=== PATIENT | male | born 1970 | race Caucasian/White ===

== ENCOUNTER → 2016-10-28 | Outpatient (CLI) | payer BC ==
[2016-10-28 07:41] LABS: BASOPHILS % (AUTO) 0 % (0-2); EOSINOPHILS # (AUTO) 0.1 10^3uL; EOSINOPHILS % (AUTO) 1 % (0-4); LYMPHOCYTES # (AUTO) 1.5 X10^3; MEAN CORPUSCULAR VOLUME 88 FL (80-100); MEAN PLATELET VOLUME 9.5 FL (6.0-9.5); MONOCYTES # (AUTO) 0.4 X10^3; MONOCYTES % (AUTO) 7 % (3-11); NEUTROPHILS # (AUTO) 3.3 X10^3; NEUTROPHILS % (AUTO) 62 % (51-67); PLATELET COUNT 215 10^3uL (150-450); WHITE BLOOD COUNT 5.31 10^3uL (4.0-11.0)
[2016-10-28 07:43] LABS: BILIRUBIN,URINE Negative (Negative); CLARITY,URINE Clear; COLOR,URINE Yellow; GLUCOSE, URINE (UA) Negative (Negative); LEUKOCYTE ESTERASE ,URINE Negative (Negative); UROBILINOGEN,URINE 0.2 mg/dL (0.2-1.0)
[2016-10-28 07:44] LABS: MEAN CORPUSCULAR HEMOGLOBIN 32.3 PG (26.0-34.0); MEAN CORPUSCULAR HGB CONC 36.8 g/dL (31.0-37.0)
[2016-10-28 07:55] LABS: RBC,URINE 0-2 /HPF; URINE CENTRIFUGED VOLUME 12 mL
[2016-10-28 08:11] LABS: ALBUMIN 4.6 g/dL (3.4-5.0); ANION GAP 14.2 MEQ/L (3-15); CALCULATED IONIZED CALCIUM 4.1 mg/dL (3.8-4.6); TOTAL PROTEIN 7.2 g/dL (6.4-8.5)
== END ==
LOC: LAB 07:26
PROVIDERS: ATTEND Family Medicine
DX: I10 Essential (primary) hypertension (principal); E78.2 Mixed hyperlipidemia; M10.9 Gout, unspecified
CPT/HCPCS: 36415; 80053; 80061; 81003; 81015; 84153; 84443; 84550; 85025

== ENCOUNTER → 2016-11-21 | Outpatient (REF) | payer BC ==
[~2016-11-21] MED LIST: ALLO100T PO; AMLO10TA82 PO; ATOR20TA PO; CEPH-331 PO; CYCL10TA45; FENO145T2 PO; LSNP20T PO; NAPR500T3 PO; OXYC1TAB87 PO
[2016-11-21 10:23] LABS: BILIRUBIN,URINE Negative (Negative); CLARITY,URINE Clear; COLOR,URINE Yellow; GLUCOSE, URINE (UA) Negative (Negative); LEUKOCYTE ESTERASE, URINE Negative (Negative); UROBILINOGEN,URINE 0.2 mg/dL (0.2-1.0)
[2016-11-21 10:43] LABS: URINE CENTRIFUGED VOLUME 12 mL
[2016-11-21 10:44] LABS: RBC,URINE 0-2 /HPF
== END ==
LOC: LAB 09:57
PROVIDERS: ATTEND Nurse Practitioner Family
DX: N45.1 Epididymitis (principal)
CPT/HCPCS: 81003; 81015

== ENCOUNTER → 2016-12-02 | Outpatient (CLI) | payer OTHER, BC ==
--- NOTE | 2016-12-02 12:11 | Diagnostic Imaging Report ---
INDICATION: Laceration. FINDINGS: The finger is held in flexion at the DIP, a soft tissue injury to the extensor mechanism could not be excluded. No bony avulsion or other fracture pattern. No retained foreign body. IMPRESSION: The DIP is held in flexion, correlate with any soft tissue injury to the extensor mechanism. No fracture, avulsion, or foreign body however is radiographically apparent. Dictated by: Dictated on workstation # [id number]
== END ==
LOC: RAD 10:25
PROVIDERS: ATTEND Nurse Practitioner Family
DX: M79.645 Pain in left finger(s) (principal)